=== PATIENT | female | born 1950 | race Two or more races ===

== ENCOUNTER 2020-08-29 12:03 | Emergency (ER) | payer MEDICAID, SELFPAY ==
[2020-08-29 12:20] VITALS: BP 155/72; PULSE 63; RESP 12; TEMP 36.6; O2SAT 99
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
[2020-08-29] MEDS: SILVER SULFADIAZINE 1% CR 50 GM JAR (*BKC) 1 APPLIC TOPICAL (12:47)
== END 2020-08-29 12:50 | disposition home or self-care (01) ==
PROVIDERS: Emergency Provider Nurse Practitioner
DX: T24.232A Burn of second degree of left lower leg, initial encounter (principal); X16.XXXA Contact with hot heating appliances, radiators and pipes, initial encounter; L08.9 Local infection of the skin and subcutaneous tissue, unspecified; F41.9 Anxiety disorder, unspecified; Z76.0 Encounter for issue of repeat prescription; E78.00 Pure hypercholesterolemia, unspecified; I10 Essential (primary) hypertension
CPT/HCPCS: 99213; A9270; G0463